=== PATIENT | male | born 1990 | race Caucasian/White ===

== ENCOUNTER 2016-08-21 02:06 | Emergency (ER) | payer OTHER ==
[~2016-08-21] VITALS: Ht 177.8 cm; Wt 82.0 kg
[2016-08-21 02:08] VITALS: BP 121/82
== END 2016-08-21 03:14 | disposition home or self-care (01) ==
LOC: ED 03:12
DX: K08.9 Disorder of teeth and supporting structures, unspecified (principal); Z88.0 Allergy status to penicillin
CPT/HCPCS: 99283